=== PATIENT | female | born 1960 | race Two or more races ===

== ENCOUNTER 2025-04-26 10:15 | Inpatient (IN) | payer OTHER ==
[~2025-04-26] VITALS: Ht 170.2 cm; Wt 83.9 kg
[2025-04-26] MEDS ORDERED: ALDACTONE50 MG PO (13:55)
[2025-04-26] MEDS ORDERED: CARVEDILOL25 MG (13:55)
[2025-04-26] MEDS ORDERED: VASOTEC5 MG PO (13:56)
[2025-05-04] MEDS ORDERED: CEFTRIAXONE SODIUM 2,000 MG VIAL ONE (10:42)
[2025-05-04] MEDS ORDERED: METRONIDAZOLE/SODIUM CHLORIDE 500 MG/100 ML PIGGYBACK IV ONE (10:42)
[2025-05-04] MEDS ORDERED: SUGAMMADEX SODIUM 200 MG/2 ML VIAL IV ONE (15:29)
[2025-05-04] MEDS ORDERED: MORPHINE SULFATE 4 MG/ML VIAL IV ONE (17:45)
[2025-05-04] MEDS ORDERED: MORPHINE SULFATE 4 MG/ML CARTRIDGE IV PRN (18:00)
[2025-05-04] MEDS ORDERED: RINGERS SOLUTION,LACTATED 1,000 ML IV SCH (18:00)
[2025-05-04] MEDS ORDERED: ONDANSETRON HCL 2 MG/ML VIAL IV PRN (18:00)
[2025-05-04] MEDS ORDERED: OxyCODONE HCL 5 MG TABLET (ROXICODONE) PO PRN (18:00)
[2025-05-04] MEDS ORDERED: ACETAMINOPHEN 500 MG GEL..CAP PO SCH (20:00)
[2025-05-04] MEDS ORDERED: LEVALBUTEROL HCL 0.63 MG/3 ML SOLUTION IH SCH (20:10)
[2025-05-04] MEDS ORDERED: ENALAPRILAT DIHYDRATE 1.25 MG/ML VIAL IV PRN (20:15)
[2025-05-04 20:49] LABS: ABG PH 7.383 (7.35-7.45); ABG PO2 185.8 mmHg (80-100); BICARBONATE 23.7 mmol/l (23-25)
[2025-05-04 20:56] LABS: o2 36 %
[2025-05-04] MEDS ORDERED: SIMETHICONE 125 MG CAPSULE PO SCH (21:00)
[2025-05-04] MEDS ORDERED: FAMOTIDINE/PF 20 MG/2 ML VIAL IV PUSH SCH (21:00)
[2025-05-04 22:02] VITALS: BP 150/70; O2SAT 97
[2025-05-04 23:36] LABS: BASO % 0.1 % (0.1-1.2); EOS # 0.04 (0.04-0.54); EOS % 0.4 % (0.7-7.0); LYMPH # 0.99 (1.18-3.74); LYMPH % 10.0 % (19.3-53.1); MEAN PLATELET VOLUME 10.10 fl (9.4-12.4); MONO # 0.74 (0.24-0.82); MONO % 7.5 % (4.7-12.5); NEUT # 8.06 (1.56-6.13); NEUT % 81.7 % (34.0-71.1); RED CELL DISTRIBUTION WIDTH 15.3 % (11.6-14.4)
[2025-05-05 00:40] VITALS: BP 145/90; O2SAT 99
[2025-05-05] MEDS ORDERED: GABAPENTIN 300 MG CAPSULE PO SCH (01:00)
[2025-05-05] MEDS ORDERED: METOCLOPRAMIDE HCL 5 MG/ML VIAL IV SCH (01:00)
[2025-05-05] MEDS ORDERED: CELECOXIB 200 MG CAPSULE PO SCH (05:00)
[2025-05-05 06:45] LABS: BASO % 0.1 % (0.1-1.2); EOS # 0.00 (0.04-0.54); EOS % 0.0 % (0.7-7.0); LYMPH # 0.91 (1.18-3.74); LYMPH % 6.2 % (19.3-53.1); MEAN PLATELET VOLUME 10.00 fl (9.4-12.4); MONO # 0.99 (0.24-0.82); MONO % 6.7 % (4.7-12.5); NEUT # 12.72 (1.56-6.13); NEUT % 86.6 % (34.0-71.1); RED CELL DISTRIBUTION WIDTH 15.4 % (11.6-14.4)
[2025-05-05 07:12] LABS: BUN CREA RATIO 13.0 (7.0-25.0); CREATININE SERUM 1.05 mg/dL (0.55-1.02); GFR 52.76; GLUCOSE FASTING 70.0 mg/dL (65-100); OSMOLALITY SERUM 282.0 MOSM/KG (275-295)
[2025-05-05 08:00] VITALS: BP 171/83; O2SAT 97
[2025-05-05] MEDS ORDERED: HYOSCYAMINE SULFATE 0.125 MG TAB.SUBL SL SCH (09:00)
[2025-05-05] MEDS ORDERED: LACTOBACILLUS ACIDOPHILUS 1 CAP CAP PO SCH (09:00)
[2025-05-05] MEDS ORDERED: METOPROLOL SUCCINATE 50 MG TAB.SR.24H PO SCH (09:00)
[2025-05-05] MEDS ORDERED: LACTULOSE 20 G/30 ML BLIST.PACK PO SCH (09:00)
[2025-05-05] MEDS ORDERED: MAGNESIUM SULFATE IN WATER 50 ML IV NR (12:00)
[2025-05-05] MEDS ORDERED: SPIRONOLACTONE 50 MG TABLET PO SCH (12:00)
[2025-05-05] MEDS ORDERED: ENALAPRIL MALEATE 5 MG TABLET PO SCH ×2 (12:00→21:00)
[2025-05-05] MEDS ORDERED: ENOXAPARIN SODIUM 40 MG/0.4 ML SYRINGE SUBCUTANEO SCH (17:00)
[2025-05-05] MEDS ORDERED: POLYETHYLENE GLYCOL 3350 17 GM BLIST.PACK PO SCH (17:00)
[2025-05-05 17:47] VITALS: BP 135/81; O2SAT 94
[2025-05-06 01:25] VITALS: BP 140/83; O2SAT 96
[2025-05-06 08:12] LABS: BASO % 0.2 % (0.1-1.2); EOS # 0.04 (0.04-0.54); EOS % 0.2 % (0.7-7.0); LYMPH # 1.09 (1.18-3.74); LYMPH % 6.5 % (19.3-53.1); MEAN PLATELET VOLUME 10.80 fl (9.4-12.4); MONO # 1.40 (0.24-0.82); MONO % 8.3 % (4.7-12.5); NEUT # 14.21 (1.56-6.13); NEUT % 84.3 % (34.0-71.1); RED CELL DISTRIBUTION WIDTH 15.4 % (11.6-14.4)
[2025-05-06 08:37] LABS: BUN CREA RATIO 14.0 (7.0-25.0); CREATININE SERUM 1.23 mg/dL (0.55-1.02); GFR 43.96; GLUCOSE FASTING 106.0 mg/dL (65-100); OSMOLALITY SERUM 281.0 MOSM/KG (275-295)
[2025-05-06] MEDS ORDERED: ENOXAPARIN SODIUM 40 MG/0.4 ML SYRINGE SUBCUTANEO SCH (09:00)
[2025-05-06] MEDS ORDERED: CARVEDILOL 25 MG TABLET PO SCH (09:00)
[2025-05-06] MEDS ORDERED: SPIRONOLACTONE 50 MG TABLET PO SCH (09:00)
[2025-05-06] MEDS ORDERED: SOD FERRIC GLUC COMPLX/SUCROSE 62.5 MG in 0.9 % SODIUM CHLORIDE 50 ML IV NR (10:00)
[2025-05-06] MEDS ORDERED: Cyanocobalamin/Mecobalamin 1 TAB.SL SL NR (10:00)
[2025-05-07] MEDS ORDERED: SOD FERRIC GLUC COMPLX/SUCROSE 62.5 MG in 0.9 % SODIUM CHLORIDE 50 ML IV SCH (09:00)
[2025-05-07] MEDS ORDERED: Cyanocobalamin/Mecobalamin 1 TAB.SL SL SCH (09:00)
== END 2025-05-06 12:48 | disposition home or self-care (01) | DRG 330 ==
LOC: SURH 05-04 07:00 → OB/GYN 05-04 10:10 → O/R 05-04 10:10 → SURH 05-04 10:15 → OB/GYN 05-04 18:18 → SURH 05-05 14:49
PROVIDERS: Internal Medicine Geriatric Medicine; ADMIT Colon & Rectal Surgery; ATTEND Colon & Rectal Surgery
PROC: 07BB4ZZ Excision of Mesenteric Lymphatic, Percutaneous Endoscopic Approach (ICD-10-PCS; 2025-05-04)
PROC: 3E0F7GC Introduction of Other Therapeutic Substance into Respiratory Tract, Via Natural or Artificial Opening (ICD-10-PCS; 2025-05-04)
PROC: 0DTF4ZZ Resection of Right Large Intestine, Percutaneous Endoscopic Approach (ICD-10-PCS; principal; 2025-05-04 07:00)
DX: C18.2 Malignant neoplasm of ascending colon (principal); K92.1 Melena; I10 Essential (primary) hypertension

== ENCOUNTER 2025-04-28 13:07 | Outpatient (CLI) | payer OTHER ==
[~2025-04-28 13:07] MED LIST: ALDACTONE50 MG PO; CARVEDILOL25 MG; VASOTEC5 MG PO
== END 2025-04-28 13:09 | disposition home or self-care (01) ==
LOC: NUCLEAR 13:07
PROVIDERS: ATTEND Internal Medicine Geriatric Medicine
DX: I50.40 Unspecified combined systolic (congestive) and diastolic (congestive) heart failure (principal)